=== PATIENT | female | born 1985 | race Caucasian/White ===

== ENCOUNTER 2016-11-23 16:54 | Emergency (ER) | payer OTHER ==
[2016-11-23 17:17] VITALS: BP 118/68
--- NOTE | 2016-11-23 18:04 | ER Document Report ---
HPI - HPI Pain Level: 4 Context: 31 yo female c/o left shoulder pain x 1 day. 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 hurts to lift arm. Associated Symptoms: None Exacerbated by: Movement Relieved by: Denies Similar symptoms previously: No Recently seen / treated by doctor: No - has appointment in 2 days - ROS Systems Reviewed and Negative: Yes All other systems reviewed and negative - REPRODUCTIVE Reproductive: DENIES: : - DERM Skin Color: Normal Past Medical History - General Information source: Patient - Social History Smoking Status: Current Every Day Smoker Frequency of alcohol use: Rare Drug Abuse: None Lives with: Family Family History: Reviewed & Not Pertinent Patient has suicidal ideation: No Patient has homicidal ideation: No Renal/ Medical History: Denies: Hx Peritoneal Dialysis Psychiatric Medical History: Reports: Hx Depression Past Surgical History: Reports: Hx Section - X1, Hx Cholecystectomy, Hx Oral Surgery - wisdom teeth - Immunizations Hx Diphtheria, Pertussis, Tetanus Vaccination: No Vertical Provider Document - CONSTITUTIONAL Agree With Documented VS: Yes Exam Limitations: No Limitations General Appearance: WD/WN - INFECTION CONTROL TRAVEL OUTSIDE OF THE [place] IN LAST 30 DAYS: No - HEENT HEENT: Atraumatic, Normal ENT Exam, PERRLA - NECK Neck: Normal Inspection, Supple - RESPIRATORY Respiratory: Breath Sounds Normal, No Respiratory Distress O2 Sat by Pulse Oximetry: 97 - CARDIOVASCULAR Cardiovascular: Regular Rate, Regular Rhythm - BACK Back: Abnormal Inspection - mild left trapezius tenderness - MUSCULOSKELETAL/EXTREMETIES Musculoskeletal/Extremeties: Tender - left anterior and posterior AC. + painful arc. distal SMC intact, No Edema. negative: Eccymosis - NEURO Level of Consciousness: Awake, Alert, Appropriate - DERM Integumentary: Warm, Dry Course - Vital Signs Vital signs: Temp Pulse Resp BP Pulse Ox 98.7 F 86 20 118/68 97 11/23/16 17:13 11/23/16 17:13 11/23/16 17:13 11/23/16 17:13 11/23/16 17:13 Discharge - Discharge Clinical Impression: Left shoulder pain Qualifiers: Chronicity: acute Qualified Code(s): M25.512 - Pain in left shoulder Condition: Stable Disposition: HOME, SELF-CARE Instructions: Oral Narcotic Medication ([facility]), Bursitis ([facility]), Steroid Medication, Muscle Relaxers ([facility]), Ice Packs ([facility]) Additional Instructions: your history and physical exam are most consistant with an inflammatory process around your rotator cuff rest your arm for next few days no xray was done today because there was no injury or bony tenderness take medications as prescribed follow up with your primary care as scheduled Prescriptions: Hydrocodone/Acetaminophen [[place] 5-325 Tablet] 1 each PO Q4 PRN #20 tablet PRN Reason: Methocarbamol [Robaxin 500 Mg Tablet] 1,000 mg PO Q6 #30 tablet Prednisone [Deltasone 10 mg Tablet] 20 mg PO BID #12 tablet Forms: Return to Work
== END 2016-11-23 18:15 | disposition home or self-care (01) ==
LOC: ER 16:54
DX: M25.512 Pain in left shoulder (principal); F17.200 Nicotine dependence, unspecified, uncomplicated
CPT/HCPCS: 99283

== ENCOUNTER → 2016-11-30 | Outpatient (CLI) | payer OTHER | LOC: RAD 18:22 | PROVIDERS: ATTEND Student in an Organized Health Care Education/Training Program | DX: M75.102 Unspecified rotator cuff tear or rupture of left shoulder, not specified as traumatic (principal) ==

== ENCOUNTER → 2017-03-01 | Day surgery (SDC) | payer OTHER ==
--- NOTE | 2017-03-01 14:32 | RADIOLOGY REPORT (SQ) ---
EXAM DESCRIPTION: ARTHRO SHOULDER INJECTION; FLUORO/NEEDLE PLACEMENT COMPLETED DATE/TIME: 03/01/2017 1:57 pm REASON FOR STUDY: PAIN IN LEFT SHOULDER M25.512 PAIN IN LEFT SHOULDER COMPARISON: MRI left shoulder 11/30/2016 FLUOROSCOPY TIME: 16 seconds 1 digital radiographic images saved to PACS. LIMITATIONS: None. PROCEDURE: Procedure, risks, benefits and alternatives explained to patient who then gave written co nsent. The posterior left shoulder was marked and a time out was called for correct procedure verific ation. Posterior entry site marked using fluoroscopic guidance. Shoulder prepped and draped using s terile technique. Local anesthesia achieved using 5 mL of 1% lidocaine injection. 22 gauge spinal n eedle introduced into the joint space under direct fluoroscopic visualization. Non-ionic contrast ins tilled to confirm intra-articular position. Dilute gadolinium solution then injected. Needle removed and entry site covered with sterile bandage. No immediate complications noted. TECHNIQUE: Digital images acquired during fluoroscopy and stored on PACS. Patient immediately take n to the MR suite for additional imaging. INJECTION LOCATION: Left glenohumeral joint CONTRAST TYPE AND AMOUNT: 0.5 mL of Isovue-300 injected to confirm intra-articular needle placement f ollowed by 10 mL of dilute gadolinium for MR arthrogram. IMPRESSION: SUCCESSFUL NEEDLE PLACEMENT AND INJECTION FOR LEFT SHOULDER MR ARTHROGRAM USING POSTERIO R APPROACH. COMMENT: Quality ID [id number]: Final reports for procedures using fluoroscopy that document radiation exp osure indices, or exposure time and number of fluorographic images (if radiation exposure indices are not available) TECHNICAL DOCUMENTATION: JOB ID: [id number] [email or web address]- All Rights Reserved
--- NOTE | 2017-03-01 17:19 | RADIOLOGY REPORT (SQ) ---
EXAM DESCRIPTION: MRI LT UPPER JOINT WITH COMPLETED DATE/TIME: 03/01/2017 3:21 pm REASON FOR STUDY: PAIN IN LEFT SHOULDER M25.512 PAIN IN LEFT SHOULDER COMPARISON: MRI left shoulder 11/30/2016 TECHNIQUE: Left shoulder images acquired and stored on PACS. Oblique coronal, oblique sagittal, and axial imaging to include fat sensitive sequences as T1, water sensitive sequences as FST2/STIR, and c ontrast sensitive sequences as FST1. LIMITATIONS: None. FINDINGS: JOINT DISTENTION: Adequate distention for interpretation. There is a small amount of flui d in the subacromial/subdeltoid bursa without gadolinium gonadal of bursitis. This is similar compar ed to 11/30/2016. BONE MARROW AND CORTEX: Normal. No significant osteophytes. Small subcortical cyst posterior left hu meral head greater tuberosity. AC JOINT: Type II acromion. Mild AC joint arthropathy. GLENOHUMERAL JOINT: No subluxation or dislocation. No focal chondral defects or reactive bone changes . ROTATOR CUFF: Minimal tendinopathy in the distal supraspinatus tendon. subscapularis, infraspinatus unremarkable. LABRUM AND BICEPS LABRAL COMPLEX: Normal signal in the rotator interval without tear of the superior glenohumeral ligament. Superior labrum, intra-articular long head biceps intact. Distal biceps in no rmal anatomic location in bicipital groove. No paralabral cysts. INFERIOR LABRAL COMPLEX: Bony glenoid and labrum intact. IGHL intact without thickening or tear. No p aralabral cysts. ADJACENT SOFT TISSUES: No masses or nodes. OTHER: No other significant finding. IMPRESSION: Small amount of fluid in the subacromial/subdeltoid bursa. Mild tendinopathy distal supraspinatus. TECHNICAL DOCUMENTATION: JOB ID: [id number] [email or web address]- All Rights Reserved
== END ==
LOC: EDSTATUS 13:00 → RAD 13:12
PROVIDERS: ATTEND Orthopaedic Surgery
PROC: BP09ZZZ Plain Radiography of Left Shoulder (ICD-10-PCS; principal; 2017-03-01)
DX: M25.512 Pain in left shoulder (principal)
CPT/HCPCS: 73222; 77002; 23350; A9576

== ENCOUNTER 2017-06-08 07:44 | Day surgery (SDC) | payer OTHER ==
[2017-06-05 09:16] LABS: ABSOLUTE BASOPHILS # (AUTO) 0.1 10^3/uL (0.0-0.2); ABSOLUTE EOSINOPHILS # (AUTO) 0.3 10^3/uL (0.0-0.6); ABSOLUTE LYMPHOCYTES (AUTO) 2.3 10^3/uL (0.5-4.7); ABSOLUTE MONOCYTES (AUTO) 0.5 10^3/uL (0.1-1.4); BASOPHILS % (AUTO) 0.8 % (0-2); EOSINOPHILS % (AUTO) 4.2 % (0-6); HEMATOCRIT 38.5 % (36.0-47.0); HGB HCT DIFFERENCE 0.5; LYMPHOCYTES % (AUTO) 28.1 % (13-45); MEAN CORPUSCULAR HEMOGLOBIN 30.1 pg (27.0-33.4); MEAN CORPUSCULAR HGB CONC 33.9 g/dL (32.0-36.0); MEAN CORPUSCULAR VOLUME 89 fl (80-97); RED BLOOD COUNT 4.33 10^6/uL (3.72-5.28); RED CELL DISTRIBUTION WIDTH 12.9 % (11.5-14.0); SEGMENTED NEUTROPHILS % (AUTO) 60.9 % (42-78); WHITE BLOOD COUNT 8.1 10^3/uL (4.0-10.5)
[2017-06-05 09:31] LABS: APPEARANCE,URINE SLIGHTLY-CLOUDY; BILIRUBIN,URINE NEGATIVE (NEGATIVE); GLUCOSE, URINE NEGATIVE (NEGATIVE); KETONES,URINE NEGATIVE (NEGATIVE); LEUKOCYTE ESTERASE,URINE NEGATIVE (NEGATIVE); NITRITE,URINE NEGATIVE (NEGATIVE); PROTEIN,URINE NEGATIVE (NEGATIVE); URINE SPECIFIC GRAVITY 1.027; UROBILINOGEN,URINE NEGATIVE mg/dL (<2.0)
[2017-06-05 09:43] LABS: ANION GAP 15 (5-19); BLOOD UREA NITROGEN 13 mg/dL (7-20); CALCIUM 9.1 mg/dL (8.4-10.2); CARBON DIOXIDE 20 mmol/L (22-30); CHLORIDE 109 mmol/L (98-107); CREATININE RESULT 0.67 mg/dL (0.52-1.25); GLUCOSE 85 mg/dL (75-110); POTASSIUM 3.8 mmol/L (3.6-5.0); SODIUM 144.1 mmol/L (137-145)
--- NOTE | 2017-06-05 09:57 | EKG REPORT ---
SEVERITY:- OTHERWISE NORMAL ECG - SINUS ARRHYTHMIA, RATE 55-75 : Confirmed by: Juan Lee 05-Jun-2017 09:57:02
--- NOTE | 2017-06-05 10:37 | RADIOLOGY REPORT (SQ) ---
EXAM DESCRIPTION: CHEST PA/LATERAL COMPLETED DATE/TIME: 06/05/2017 9:24 am REASON FOR STUDY: PRE OP COMPARISON: None. EXAM PARAMETERS: NUMBER OF VIEWS: two views TECHNIQUE: Digital Frontal and Lateral radiographic views of the chest acquired. RADIATION DOSE: NA LIMITATIONS: none FINDINGS: LUNGS AND PLEURA: No opacities, masses or pneumothorax. No pleural effusion. MEDIASTINUM AND HILAR STRUCTURES: No masses or contour abnormalities. HEART AND VASCULAR STRUCTURES: Heart normal size. No evidence for failure. BONES: No acute findings. HARDWARE: None in the chest. OTHER: No other significant finding. IMPRESSION: NO SIGNIFICANT RADIOGRAPHIC FINDING IN THE CHEST. TECHNICAL DOCUMENTATION: JOB ID: [id number] [employer]- All Rights Reserved
[~2017-06-08 07:44] MED LIST: BUPIVACAINE HCL 0.25 % INJ/PF (2.5 MG/1 ML) 30 ML VIAL ONE; CEFAZOLIN 2 GM/D5W RTU 2 GM/50 ML RTUPB IV PRN; EPINEPHRINE INJ/PF 1 MG/1 ML AMPULE ONE
[2017-06-08] MEDS ORDERED: MIDAZOLAM 2 MG/2 ML INJ ONE (10:00)
[2017-06-08] MEDS ORDERED: FENTANYL CITRATE INJ/PF 100 MCG/2 ML AMPUL ONE (10:00)
[2017-06-08] MEDS ORDERED: ACETAMINOPHEN 100 ML IV ONE (10:01)
[2017-06-08] MEDS ORDERED: EPHEDRINE SULFATE INJ 50 MG/1 ML AMPULE ONE (10:01)
[2017-06-08] MEDS ORDERED: IBUPROFEN INJ 800 MG/8 ML VIAL IV ONE (10:01)
[2017-06-08] MEDS ORDERED: PROPOFOL INJ 200 MG/20 ML VIAL IV ONE (10:01)
[2017-06-08] MEDS ORDERED: HYDROMORPHONE HCL INJ/PF 2 MG/ML AMPULE ONE (10:02)
[2017-06-08] MEDS ORDERED: PROMETHAZINE HCL INJ 25 MG/1 ML VIAL IV PRN ×2 (11:50)
[2017-06-08] MEDS ORDERED: DIPHENHYDRAMINE HCL 50 MG/ML VIAL IV PRN (11:50)
[2017-06-08] MEDS ORDERED: ONDANSETRON HCL INJ/PF 4 MG/2 ML SDV IV PRN (11:50)
[2017-06-08] MEDS ORDERED: MEPERIDINE HCL/PF INJ 25 MG/1 ML DISP.SYRIN IV PRN (11:50)
[2017-06-08] MEDS ORDERED: FENTANYL CITRATE INJ/PF 100 MCG/2 ML AMPUL IV PRN ×3 (11:50)
[2017-06-08] MEDS ORDERED: MORPHINE SULFATE 10 MG/ML INJ IV PRN (11:50)
--- NOTE | 2017-06-08 12:16 | Operative Report ---
Operative Report DATE OF SURGERY: 06/08/17 PREOPERATIVE DIAGNOSIS: Left shoulder partial thickness supraspinatus tear and SLAP tear POSTOPERATIVE DIAGNOSIS: Same OPERATION: Left shoulder arthroscopic debridement with decompression and subpectoralis biceps tenodesis SURGEON: MJ DUMONT ANESTHESIA: GA TISSUE REMOVED OR ALTERED: long head of the biceps COMPLICATIONS: none ESTIMATED BLOOD LOSS: less than 20mL INTRAOPERATIVE FINDINGS: as above PROCEDURE: Patient received 1 g of IV Ancef. Patient then was taken to the operating room where she was induced and intubated in supine position. Patient then was secured in the beachchair position where the left shoulder was prepped and draped in a normal surgical fashion. Was done identifying the left shoulder as the correct site. Spinal needle was used to insert into the glenohumeral joint and I proceeded to distend the capsule with sterile saline solution. 11 blade was used to establish my posterior portal and I introduced the cannula into the glenohumeral joint. Once I got return of fluid I confirm proper placement and placed a camera. Under direct visualization I placed a spinal needle marked my anterior portal and used an 11 blade to establish a. I placed a purple cannula and then through the cannula was able to probe and proceed with my diagnostic scope which show pristine glenohumeral joint cartilage and intact labrum anterior, inferior and posterior. Patient had a type II SLAP tear in conjunction with a Deja complex. Turn my attention to the footprint of the rotator cuff which showed to be intact with no partial tearing. At this point through the anterior portal I use arthroscopic scissors to do a tenotomy of the long head of the biceps at the attachment of the glenoid superiorly. I used a 4.0mm shaver and radiofrequency ablator to debride the labrum. I redirected the fluoroscopy camera to the subacromial space and redirected my anterior cannula into the subacromial space as well. Through the anterior portal I was able to do my formal bursectomy and decompression using the shaver and radiofrequency ablator. Rotator cuff was inflamed but intact with no bursal sided partial tear. There is no acromial spurs acromioplasty was performed.I proceeded then to remove fluid from the shoulder joint and removed the instruments. A 1 inch incision was done just medial to the axillary fold dissection was done with Metzenbaum scissors and hemostasis was obtained with the Bovie. Able to then cut the fascia overlying the biceps and then hooked the long head of biceps with a 90 clamp. Was able then to use a fiber loop and suture 2 cm from the muscular tendinous junction and cut the remaining tendon. I used 2 Homans to reflect tissue on the side of the humerus. I used a 4 mm spade tip guidepin then to do my proximal cortex drilling into the intramedullary canal of the humerus. I fed the 2 ends of the fiber wire into the biceps tenodesis button as recommended by the manufacturing company. Pulled out the guidepin and then proceeded to insert the button into the intramedullary canal. I was able to successfully flipped the button and after releasing securing the biceps. I used a free needle the comes in the care and pass one of the FiberWire ends through the biceps one more time to further secure it. Once I since the biceps onto the humeral cortex I then proceeded to go several half hitch knots for added fixation. Instruments were removed and used bulb irrigation to wash the tissue. I proceeded to approximate the tissue with 2-0 Vicryl and close the skin with 3-0 nylon. The 2 of the portal sites were closed with 3-0 nylon as well. I placed Xeroform over the incisions and covered it with 4 x 4 dressing and ABD pads. Secured the dressing with Medipore tape. Patient's arm was placed in the sling and the patient then was placed in supine position extubated and sent to PACU in stable condition.
--- NOTE | 2017-06-08 12:20 | PDOC DISCHARGE SUMMARY ---
Discharge Summary (SDC) - Discharge Final Diagnosis: Left shoulder arthroscopic debridement with decompression and subpectoralis biceps tenodesis Date of Surgery: 06/08/17 Discharge Date: 06/08/17 Condition: Good Treatment or Instructions: Patient is instructed to follow up in 10-14 days. Patient instructed to remove dressing in 4 days then can shower and apply Band- Aids as needed. Patient to wear sling for comfort but okay to remove for shower and pendulum exercises. Pendulum exercises are instructed to be done 3 times a day ideally with breakfast, lunch, dinners and showers. Patient instructed to call if there is any signs of redness or drainage fevers or chills. Prescriptions: Oxycodone HCl/Acetaminophen [Percocet 5-325 mg Tablet] 1 - 2 tab PO ASDIR PRN # 60 tablet PRN Reason: Referrals: LICHA CARDONA DO [Primary Care Provider] - Discharge Diet: As Tolerated Respiratory Treatments at Home: Deep Breathing/Coughing Discharge Activity: No Lifting/Push/Pulling Home Care Assistance: None Needed Report the Following to Your Physician Immediately: Shortness of Breath, Vomiting, Increase in Pain, Fever over 101 Degrees, Unusual Bleeding, Redness, Swelling, Warmth, Increased Soreness, Drainage-Yellow, Drainage-Healy, Drainage- Green, Drainage-Foul Smelling
[2017-06-08] MEDS ORDERED: OXYCODONE-ACETAMINOPHEN 5-325 MG TABLET PO PRN ×2 (12:24)
[2017-06-08] MEDS: FENTANYL CITRATE INJ/PF 100 MCG/2 ML AMPUL ONE ×2 (12:45→12:55)
[2017-06-08] MEDS ORDERED: ONDANSETRON HCL INJ/PF 4 MG/2 ML SDV ONE (14:23)
[2017-06-08] MEDS ORDERED: DEXAMETHASONE SOD PHOSPHATE INJ 4 MG/1 ML VIAL ONE (14:23)
[2017-06-08] MEDS ORDERED: LIDOCAINE 2% INJ-PF (20 MG/ML) 2 ML AMPUL ONE (14:23)
[2017-06-08] MEDS ORDERED: METOCLOPRAMIDE HCL INJ/PF 10 MG/2 ML SDV ONE (14:23)
[2017-06-08] MEDS ORDERED: SUCCINYLCHOLINE CHLORIDE INJ 200 MG/10 ML VIAL ONE (14:23)
[2017-06-08] MEDS ORDERED: GLYCOPYRROLATE INJ 0.4 MG/2 ML VIAL ONE (14:23)
[2017-06-08 15:02] VITALS: BP 112/71
== END 2017-06-08 14:25 | disposition home or self-care (01) ==
LOC: OROUT 07:44
PROVIDERS: ATTEND Orthopaedic Surgery
PROC: 0RBK4ZZ Excision of Left Shoulder Joint, Percutaneous Endoscopic Approach (ICD-10-PCS; 2017-06-08)
PROC: 0LM40ZZ Reattachment of Left Upper Arm Tendon, Open Approach (ICD-10-PCS; principal; 2017-06-08 09:30)
DX: M75.42 Impingement syndrome of left shoulder (principal); M75.112 Incomplete rotator cuff tear or rupture of left shoulder, not specified as traumatic; M75.52 Bursitis of left shoulder; F17.210 Nicotine dependence, cigarettes, uncomplicated; Z79.891 Long term (current) use of opiate analgesic
CPT/HCPCS: 24340; 93005; 36415; 85025; 81025; 80048; 81001; 71020; 93010; 29822; C1713; J2250; J1100; J3490 ×2; J0171; J3010; J2765; J1170; J0330; J2405; J2704; J0690; J0131; J1741; 1630

== ENCOUNTER 2017-11-24 10:11 | Emergency (ER) | payer OTHER ==
--- NOTE | 2017-11-24 10:38 | ER Document Report ---
ED Medical Screen (RME) - General Chief Complaint: Stiff Neck Stated Complaint: BODY ACHES Time Seen by Provider: 11/24/17 10:31 Notes: 32-year-old female patient with sore throat for 3 weeks. 3 days ago developed some pain in the right neck shoulder trapezius region. No history of fevers. She does have body aches and states she feels hot sometimes. Also has headaches. She was seen at an urgent care this morning, had a negative rapid strep done and was sent here for concerns of meningitis. Brief exam shows the tonsillar region on the right has some erythema and swelling, there is a tender anterior cervical gland on the right. Left side is less involved. Trapezius muscle and posterior cervical muscles on the right are quite tender to palpate less so on the left. There is no nuchal rigidity. I have greeted and performed a rapid initial assessment of this patient. A comprehensive ED assessment and evaluation of the patient, analysis of test results and completion of the medical decision making process will be conducted by additional ED providers. TRAVEL OUTSIDE OF THE [place] IN LAST 30 DAYS: No - Related Data Allergies/Adverse Reactions: No Known Allergies Allergy (Verified 11/24/17 10:31) Past Medical History - Social History Chew tobacco use (# tins/day): No Frequency of alcohol use: None Drug Abuse: None - Past Medical History Cardiac Medical History: Denies: Hx Coronary Artery Disease, Hx Heart Attack, Hx Hypertension Pulmonary Medical History: Denies: Hx Asthma, Hx Bronchitis, Hx COPD, Hx Pneumonia Neurological Medical History: Denies: Hx Cerebrovascular Accident, Hx Seizures Renal/ Medical History: Denies: Hx Peritoneal Dialysis Musculoskeltal Medical History: Denies Hx Arthritis Psychiatric Medical History: Reports: Hx Depression Past Surgical History: Reports: Hx Section - X1, Hx Cholecystectomy, Hx Gynecologic Surgery - D & C, Hx Oral Surgery - wisdom teeth - Immunizations Hx Diphtheria, Pertussis, Tetanus Vaccination: Yes History of Influenza Vaccine for 04/2017 - 09/2017 Season: No Physical Exam - Vital signs Vitals: Temp Pulse Resp BP Pulse Ox 98.0 F 76 18 112/62 99 11/24/17 10:17 11/24/17 10:17 11/24/17 10:17 11/24/17 10:17 11/24/17 10:17 Course - Vital Signs Vital signs: Temp Pulse Resp BP Pulse Ox 98.0 F 76 18 112/62 99 11/24/17 10:17 11/24/17 10:17 11/24/17 10:17 11/24/17 10:17 11/24/17 10:17
[2017-11-24 11:01] LABS: ABSOLUTE BASOPHILS # (AUTO) 0.1 10^3/uL (0.0-0.2); ABSOLUTE EOSINOPHILS # (AUTO) 0.2 10^3/uL (0.0-0.6); ABSOLUTE LYMPHOCYTES (AUTO) 2.1 10^3/uL (0.5-4.7); ABSOLUTE MONOCYTES (AUTO) 1.3 10^3/uL (0.1-1.4); ABSOLUTE NEUT (AUTO) 8.7 10^3/uL (1.7-8.2); BASOPHILS % (AUTO) 0.5 % (0-2); EOSINOPHILS % (AUTO) 1.7 % (0-6); HEMATOCRIT 41.9 % (36.0-47.0); HEMOGLOBIN 13.9 g/dL (12.0-15.5); LYMPHOCYTES % (AUTO) 17.3 % (13-45); MEAN CORPUSCULAR HEMOGLOBIN 29.2 pg (27.0-33.4); MEAN CORPUSCULAR HGB CONC 33.2 g/dL (32.0-36.0); MEAN CORPUSCULAR VOLUME 88 fl (80-97); MONOCYTES % (AUTO) 10.7 % (3-13); PLATELET COUNT 256 10^3/uL (150-450); RED BLOOD COUNT 4.76 10^6/uL (3.72-5.28); RED CELL DISTRIBUTION WIDTH 13.3 % (11.5-14.0); SEGMENTED NEUTROPHILS % (AUTO) 69.8 % (42-78); TOTAL CELLS COUNTED % (AUTO) 100 %; WHITE BLOOD COUNT 12.4 10^3/uL (4.0-10.5)
[2017-11-24 11:22] LABS: ALANINE AMINOTRANSFERASE 53 U/L (9-52); ALBUMIN 4.5 g/dL (3.5-5.0); ALKALINE PHOSPHATASE 89 U/L (38-126); ANION GAP 14 (5-19); ASPARTATE AMINO TRANSFERASE 44 U/L (14-36); BILIRUBIN,DIRECT 0.3 mg/dL (0.0-0.4); BILIRUBIN,TOTAL 0.6 mg/dL (0.2-1.3); BLOOD UREA NITROGEN 8 mg/dL (7-20); CALCIUM 9.9 mg/dL (8.4-10.2); CARBON DIOXIDE 26 mmol/L (22-30); CHLORIDE 105 mmol/L (98-107); GLUCOSE 100 mg/dL (75-110); POTASSIUM 4.5 mmol/L (3.6-5.0); SODIUM 145.1 mmol/L (137-145); TOTAL PROTEIN 8.3 g/dL (6.3-8.2)
[2017-11-24] MEDS ORDERED: IBUPROFEN 800 MG TABLET PO ONE (11:45)
[2017-11-24] MEDS ORDERED: CEPHALEXIN 500 MG CAPSULE PO ONE (11:45)
[2017-11-24] MEDS ORDERED: CYCLOBENZAPRINE HCL 10 MG TABLET PO ONE (11:45)
--- NOTE | 2017-11-24 11:46 | ER Document Report ---
ED General - General Chief Complaint: Stiff Neck Stated Complaint: BODY ACHES Time Seen by Provider: 11/24/17 10:31 Notes: 82-year-old female patient to emergency department complaining of right shoulder stiffness. Was seen at outpatient urgent care and was told that she might have meningitis so was sent here. Patient says she has had intermittent headache. No fever, chills, sweats. No rash. Stiffness is mainly located on the right lateral aspect of the neck and right trapezius muscles. Also has a sore throat. TRAVEL OUTSIDE OF THE [place] IN LAST 30 DAYS: No - HPI Onset: Last week Onset/Duration: Gradual, Waxing and waning - Related Data Allergies/Adverse Reactions: No Known Allergies Allergy (Verified 11/24/17 10:31) Past Medical History - General Information source: Patient - Social History Smoking Status: Current Every Day Smoker Cigarette use (# per day): Yes Chew tobacco use (# tins/day): No Frequency of alcohol use: None Drug Abuse: None Lives with: Family Family History: Reviewed & Not Pertinent Patient has suicidal ideation: No Patient has homicidal ideation: No - Past Medical History Cardiac Medical History: Denies: Hx Coronary Artery Disease, Hx Heart Attack, Hx Hypertension Pulmonary Medical History: Denies: Hx Asthma, Hx Bronchitis, Hx COPD, Hx Pneumonia Neurological Medical History: Denies: Hx Cerebrovascular Accident, Hx Seizures Renal/ Medical History: Denies: Hx Peritoneal Dialysis Musculoskeltal Medical History: Denies Hx Arthritis Psychiatric Medical History: Reports: Hx Depression Past Surgical History: Reports: Hx Section - X1, Hx Cholecystectomy, Hx Gynecologic Surgery - D & C X2, Hx Oral Surgery - wisdom teeth, Hx Orthopedic Surgery - left shoulder - Immunizations Hx Diphtheria, Pertussis, Tetanus Vaccination: Yes Review of Systems - Review of Systems Constitutional: denies: Chills, Diaphoresis, Fever, Malaise, Weakness EENT: Throat pain. denies: Eye pain, Eye discharge, Double vision, Ear pain, Difficulty swallowing, Throat swelling, Mouth pain Cardiovascular: denies: Chest pain, Palpitations, Heart racing Respiratory: denies: Cough, Hurts to breathe, Short of breath, Wheezing Gastrointestinal: denies: Abdominal pain, Diarrhea, Nausea, Vomiting Musculoskeletal: See HPI, Muscle pain, Muscle stiffness, Neck pain. denies: Leg swelling, Ankle swelling Skin: denies: Dryness, Lesions, Lumps, Rash Hematologic/Lymphatic: denies: Anemia, Blood clots, Easy bleeding, Easy bruising Neurological/Psychological: Headaches. denies: Confusion, Weakness, Numbness Physical Exam - Vital signs Vitals: Temp Pulse Resp BP Pulse Ox 98.0 F 76 18 112/62 99 11/24/17 10:17 11/24/17 10:17 11/24/17 10:17 11/24/17 10:17 11/24/17 10:17 Interpretation: Normal - General General appearance: Appears well, Alert - HEENT Head: Normocephalic, Atraumatic Eyes: Normal Pupils: PERRL Mouth/Lips: Normal Mucous membranes: Normal Pharynx: Erythema. No: Exudate, Retropharyngeal abscess Neck: Normal, Shotty nodes, Supple, Other - She does have some tenderness to palpation in the right sternocleidomastoid muscle and right trapezius muscle. No midline tenderness. No tenderness with flexion of the neck forward. Main pain is reproducible on the right SCM when neck rotated to the left.. No: Brudzinski, Meningismus, Neck mass - Respiratory Respiratory status: No respiratory distress Chest status: Nontender Breath sounds: Normal Chest palpation: Normal - Cardiovascular Rhythm: Regular Heart sounds: Normal auscultation Murmur: No - Abdominal Inspection: Normal Distension: No distension Bowel sounds: Normal Tenderness: Nontender Organomegaly: No organomegaly - Back Back: Normal, Nontender - Extremities General upper extremity: Normal inspection, Nontender, Normal color, Normal ROM , Normal temperature General lower extremity: Normal inspection, Nontender, Normal color, Normal ROM , Normal temperature, Normal weight bearing. No: Sudhakar's sign - Neurological Neuro grossly intact: Yes Cognition: Normal Orientation: AAOx4 Dario Coma Scale Eye Opening: Spontaneous Dario Coma Scale Verbal: Oriented [place] Coma Scale Motor: Obeys Commands Dario Coma Scale Total: 15 Speech: Normal Motor strength normal: LUE, RUE, LLE, RLE Sensory: Normal - Psychological Associated symptoms: Normal affect, Normal mood - Skin Skin Temperature: Warm Skin Moisture: Dry Skin Color: Normal Course - Re-evaluation Re-evalutation: 11/24/17 12:54 11/24/17 10:45 11/24/17 10:45 MCV 88 fl (80-97) 11/24/17 10:45 MCH 29.2 pg (27.0-33.4) 11/24/17 10:45 MCHC 33.2 g/dL (32.0-36.0) 11/24/17 10:45 RDW 13.3 % (11.5-14.0) 11/24/17 10:45 Seg Neutrophils % 69.8 % (42-78) 11/24/17 10:45 Lymphocytes % 17.3 % (13-45) 11/24/17 10:45 Monocytes % 10.7 % (3-13) 11/24/17 10:45 Eosinophils % 1.7 % (0-6) 11/24/17 10:45 Basophils % 0.5 % (0-2) 11/24/17 10:45 Absolute Neutrophils 8.7 10^3/uL (1.7-8.2) H 11/24/17 10:45 Absolute Lymphocytes 2.1 10^3/uL (0.5-4.7) 11/24/17 10:45 Absolute Monocytes 1.3 10^3/uL (0.1-1.4) 11/24/17 10:45 Absolute Eosinophils 0.2 10^3/uL (0.0-0.6) 11/24/17 10:45 Absolute Basophils 0.1 10^3/uL (0.0-0.2) 11/24/17 10:45 Chloride 105 mmol/L (98-107) 11/24/17 10:45 Carbon Dioxide 26 mmol/L (22-30) 11/24/17 10:45 Anion Gap 14 (5-19) 11/24/17 10:45 Est GFR ( Amer) > 60 (>60) 11/24/17 10:45 Est GFR (Non-Af Amer) > 60 (>60) 11/24/17 10:45 Glucose 100 mg/dL (75-110) 11/24/17 10:45 Calcium 9.9 mg/dL (8.4-10.2) 11/24/17 10:45 Total Bilirubin 0.6 mg/dL (0.2-1.3) 11/24/17 10:45 AST 44 U/L (14-36) H 11/24/17 10:45 ALT 53 U/L (9-52) H 11/24/17 10:45 Alkaline Phosphatase 89 U/L (38-126) 11/24/17 10:45 Total Protein 8.3 g/dL (6.3-8.2) H 11/24/17 10:45 Albumin 4.5 g/dL (3.5-5.0) 11/24/17 10:45 Serum HCG, Qual NEGATIVE (NEGATIVE) 11/24/17 10:45 This is well-appearing female in no acute distress. Likely has a viral pharyngitis. Did empirically treat with antibiotics as she does have a unilateral swollen tonsil with shotty lymphadenopathy on the right side of the neck. Culture is added for the throat. This is not meningitis in my opinion. Does not manifest any nuchal rigidity. Negative Kernig's, negative Brudzinski. Patient given strict warning signs with regards to her symptoms. Advised to return immediately. Of note patient has slightly elevated LFT of AST and ALT which is unchanged from prior labs. - Vital Signs Vital signs: Temp Pulse Resp BP Pulse Ox 98.0 F 76 18 112/62 99 11/24/17 10:17 11/24/17 10:17 11/24/17 10:17 11/24/17 10:17 11/24/17 10:17 - Laboratory Result Diagrams: 11/24/17 10:45 11/24/17 10:45 Laboratory results interpreted by me: 11/24/17 11/24/17 10:45 10:45 WBC 12.4 H Absolute Neutrophils 8.7 H Sodium 145.1 H AST 44 H ALT 53 H Total Protein 8.3 H Discharge - Discharge Clinical Impression: Torticollis, acute Pharyngitis Qualifiers: Pharyngitis/tonsillitis etiology: unspecified etiology Qualified Code(s): J02.9 - Acute pharyngitis, unspecified Disposition: HOME, SELF-CARE Instructions: Sore Throat ([facility]) Additional Instructions: It does not appear that you have meningitis. We are treating you with a muscle relaxant and anti-inflammatories as well as antibiotics. In the event that symptoms are getting worse, worsening headache, fever, worsening stiffness of the neck, mental status changes, confusion, abnormal rash or any other concerns return immediately. Prescriptions: Cephalexin Monohydrate [Keflex 500 mg Capsule] 500 mg PO QID 7 Days #28 capsule Cyclobenzaprine HCl [Flexeril 5 mg Tablet] 5 mg PO TID #15 tablet Ibuprofen [Motrin 800 mg Tablet] 800 mg PO Q8H PRN 10 Days #30 tab PRN Reason: Referrals: LICHA CARDONA DO [Primary Care Provider] - Follow up as needed
[2017-11-24 13:47] VITALS: BP 108/60
== END 2017-11-24 14:00 | disposition home or self-care (01) ==
LOC: ER 10:11
DX: M43.6 Torticollis (principal); J02.9 Acute pharyngitis, unspecified; R51 Headache; F17.210 Nicotine dependence, cigarettes, uncomplicated; R59.0 Localized enlarged lymph nodes; R74.0 Nonspecific elevation of levels of transaminase and lactic acid dehydrogenase [LDH]
CPT/HCPCS: 36415; 80053; 84703; 85025; 86308; 87070; 87880; 99283

== ENCOUNTER 2018-04-19 10:31 | Day surgery (SDC) | payer OTHER ==
[2018-04-17 10:49] LABS: HEMOGLOBIN 13.5 g/dL (12.0-15.5); MEAN CORPUSCULAR HEMOGLOBIN 30.3 pg (27.0-33.4); MEAN CORPUSCULAR HGB CONC 34.6 g/dL (32.0-36.0); MEAN CORPUSCULAR VOLUME 88 fl (80-97); PLATELET COUNT 252 10^3/uL (150-450); RED BLOOD COUNT 4.45 10^6/uL (3.72-5.28); RED CELL DISTRIBUTION WIDTH 13.1 % (11.5-14.0); WHITE BLOOD COUNT 7.3 10^3/uL (4.0-10.5)
[2018-04-17 11:09] LABS: APPEARANCE,URINE CLOUDY; BILIRUBIN,URINE NEGATIVE (NEGATIVE); COLOR,URINE YELLOW; GLUCOSE, URINE NEGATIVE (NEGATIVE); KETONES,URINE NEGATIVE (NEGATIVE); LEUKOCYTE ESTERASE,URINE NEGATIVE (NEGATIVE); NITRITE,URINE NEGATIVE (NEGATIVE); PROTEIN,URINE NEGATIVE (NEGATIVE); URINE SPECIFIC GRAVITY 1.014; UROBILINOGEN,URINE NEGATIVE mg/dL (<2.0)
[2018-04-17 11:18] LABS: ANION GAP 10 (5-19); BLOOD UREA NITROGEN 10 mg/dL (7-20); CALCIUM 9.4 mg/dL (8.4-10.2); CARBON DIOXIDE 25 mmol/L (22-30); CHLORIDE 106 mmol/L (98-107); GLUCOSE 86 mg/dL (75-110); POTASSIUM 4.4 mmol/L (3.6-5.0); SODIUM 141.2 mmol/L (137-145)
--- NOTE | 2018-04-17 12:44 | RADIOLOGY REPORT (SQ) ---
EXAM DESCRIPTION: CHEST PA/LATERAL COMPLETED DATE/TIME: 04/17/2018 11:44 am REASON FOR STUDY: PRE-OP COMPARISON: 06/05/2017 EXAM PARAMETERS: NUMBER OF VIEWS: two views TECHNIQUE: Digital Frontal and Lateral radiographic views of the chest acquired. RADIATION DOSE: NA LIMITATIONS: none FINDINGS: LUNGS AND PLEURA: No opacities, masses or pneumothorax. No pleural effusion. MEDIASTINUM AND HILAR STRUCTURES: No masses or contour abnormalities. HEART AND VASCULAR STRUCTURES: Heart normal size. No evidence for failure. BONES: No acute findings. HARDWARE: None in the chest. OTHER: No other significant finding. IMPRESSION: 1. No significant interval changes since the prior examination dated 06/05/2017. No ac nathan findings. TECHNICAL DOCUMENTATION: JOB ID: [id number] [employer]- All Rights Reserved Reading location - IP/workstation name: [email or web address]
--- NOTE | 2018-04-17 17:02 | EKG REPORT ---
SEVERITY:- NORMAL ECG - SINUS RHYTHM : Confirmed by: Brooke Aiken MD 17-Apr-2018 17:01:33
[~2018-04-19 10:31] MED LIST changes: -BUPIVACAINE HCL 0.25 % INJ/PF (2.5 MG/1 ML) 30 ML VIAL ONE; +CEFAZOLIN 2 GM/D5W RTU 2 GM/50 ML RTUPB IV ONE; -EPINEPHRINE INJ/PF 1 MG/1 ML AMPULE ONE; +LACTATED RINGERS 1000 ML IV PRN; +SUCCINYLCHOLINE CHLORIDE INJ 200 MG/10 ML VIAL ONE
[2018-04-19] MEDS ORDERED: BUPIVACAINE HCL 0.5 % INJ/PF 30 ML SDV ONE (14:14)
[2018-04-19] MEDS ORDERED: EPINEPHRINE INJ/PF 1 MG/1 ML AMPULE ONE (14:14)
[2018-04-19] MEDS ORDERED: MIDAZOLAM 2 MG/2 ML INJ ONE (15:17)
[2018-04-19] MEDS ORDERED: HYDROMORPHONE HCL INJ/PF 2 MG/ML AMPULE ONE (15:18)
[2018-04-19] MEDS ORDERED: PROPOFOL INJ 200 MG/20 ML VIAL IV ONE (15:18)
[2018-04-19] MEDS ORDERED: FENTANYL CITRATE INJ/PF 100 MCG/2 ML AMPUL IV PRN ×3 (16:11)
[2018-04-19] MEDS ORDERED: DIPHENHYDRAMINE HCL 50 MG/ML VIAL IV PRN (16:11)
[2018-04-19] MEDS ORDERED: MORPHINE SULFATE 10 MG/ML INJ IV PRN (16:11)
[2018-04-19] MEDS ORDERED: MEPERIDINE HCL/PF INJ 25 MG/1 ML DISP.SYRIN IV PRN (16:11)
[2018-04-19] MEDS ORDERED: OXYCODONE-ACETAMINOPHEN 5-325 MG TABLET PO PRN ×4 (16:11→17:14)
[2018-04-19] MEDS ORDERED: PROMETHAZINE HCL INJ 25 MG/1 ML VIAL IV PRN ×2 (16:11)
--- NOTE | 2018-04-19 17:07 | Discharge Summary ---
Discharge Summary (SDC) - Discharge Final Diagnosis: Left shoulder arthroscopy with debridement and acromioplasty Date of Surgery: 04/19/18 Discharge Date: 04/19/18 Condition: Good Treatment or Instructions: Patient is instructed to follow up in 10-14 days. Patient instructed to remove dressing in 4 days then can shower and apply Band- Aids as needed. Patient to wear sling for comfort but okay to remove for shower and pendulum exercises. Pendulum exercises are instructed to be done 3 times a day ideally with breakfast, lunch, dinners and showers. Patient instructed to call if there is any signs of redness or drainage fevers or chills. Prescriptions: Oxycodone HCl/Acetaminophen [Percocet 5-325 mg Tablet] 1 - 2 tab PO ASDIR PRN # 40 tablet PRN Reason: Referrals: LICHA CARDONA DO [Primary Care Provider] - Discharge Diet: As Tolerated Respiratory Treatments at Home: Deep Breathing/Coughing Discharge Activity: No Driving, No Lifting/Push/Pulling, Slowly Increase Activity Home Care Assistance: None Needed Report the Following to Your Physician Immediately: Shortness of Breath, Vomiting, Increase in Pain, Fever over 101 Degrees, Unusual Bleeding, Redness, Swelling, Warmth, Increased Soreness, Drainage-Yellow, Drainage-Healy, Drainage- Green, Drainage-Foul Smelling
--- NOTE | 2018-04-19 17:14 | Operative Report ---
Operative Report DATE OF SURGERY: 04/19/18 PREOPERATIVE DIAGNOSIS: Left shoulder impingement syndrome POSTOPERATIVE DIAGNOSIS: Same OPERATION: Left shoulder arthroscopic debridement. Decompression and acromioplasty SURGEON: MJ DUMONT ANESTHESIA: GA TISSUE REMOVED OR ALTERED: none COMPLICATIONS: none ESTIMATED BLOOD LOSS: 20mL INTRAOPERATIVE FINDINGS: as above PROCEDURE: Patient received preoperative antibiotics in the holding area. Patient then was transferred to the OR where she was induced under general anesthetic and placed in a beachchair position. Once patient was secured the left shoulder was prepped and draped in a normal sterile surgical fashion. Timeout was done identifying the left shoulder is a correct site. I proceeded to use the previous portal sites and the posterior portal with 11 blade. Used 11 blade for the anterior portal. I introduced my scope and distended the capsule with sterile saline solution. Camera was introduced and under direct visualization I was able to place my probe and show there was some fraying of the labrum anteriorly and superiorly and some scar tissue over the bicipital groove. Through the anterior portal was able to resect this using a 4.0 mm shaver and radiofrequency ablator. There was no loose bodies in the glenohumeral articular cartilage was intact. Once I was satisfied with his portion of the case I then redirected the scope to the subacromial space and then then established a lateral portal. Through the lateral portal I used the shaver and radiofrequency ablator 1 more time to do resection of my bursal tissue. I was able to visualize the rotator cuff which showed no partial bursal sided tear. I then I used the radiofrequency ablator to delineate the acromion and all way up to the AC joint. Through this lateral portal I used a 5.5 barrel bur and the resection of the anterolateral portion of the acromion. Pictures were taken after resection. Fluid from the subacromial space was removed and the instruments were all removed at this portion of the case and then the 3 portal sites that were established were closed with 3-0 Prolene. I applied quarter percent Marcaine in the portal sites and then covered it with Xeroform 4 x 4 dressing and ABD pads. Paper tape was used then to secure the dressing. Drapes were removed and the patient was placed in a sling. Patient then was placed in a beachchair position where she was extubated and sent to PACU in a stable condition
[2018-04-19] MEDS: FENTANYL CITRATE INJ/PF 100 MCG/2 ML AMPUL ONE ×3 (17:35→17:45)
[2018-04-19] MEDS ORDERED: OXYCODONE-ACETAMINOPHEN 5-325 MG TABLET ONE (18:20)
[2018-04-19 19:22] VITALS: BP 124/67
== END 2018-04-19 19:20 | disposition home or self-care (01) ==
LOC: OROUT 10:31
PROVIDERS: ATTEND Orthopaedic Surgery
DX: M75.42 Impingement syndrome of left shoulder (principal); M25.512 Pain in left shoulder; F17.210 Nicotine dependence, cigarettes, uncomplicated; Z79.899 Other long term (current) drug therapy; Z01.818 Encounter for other preprocedural examination
CPT/HCPCS: 93005; 36415; 85027; 81025; 80048; 81001; 71046; 93010; 29822; J2250; J3490; J0171; J3010; J1170; J0330; J2704; J0690; 1630

== ENCOUNTER 2018-06-06 15:59 | Emergency (ER) | payer OTHER ==
[2018-06-06 16:05] VITALS: BP 118/62
--- NOTE | 2018-06-06 16:29 | ER Document Report ---
HPI - HPI Pain Level: 4 Notes: Patient is an otherwise healthy 33-year-old female who presents with chief complaint of dog bite to her right first digit. Patient reports that the dog's immunizations are up-to-date, she was breaking up a dog fight in her home. She reports her tetanus is up-to-date. - REPRODUCTIVE Reproductive: DENIES: : Past Medical History - General Information source: Patient - Social History Smoking Status: Current Every Day Smoker Frequency of alcohol use: None Drug Abuse: Marijuana Family History: Reviewed & Not Pertinent Patient has suicidal ideation: No Patient has homicidal ideation: No - Past Medical History Cardiac Medical History: Denies: Hx Coronary Artery Disease, Hx Heart Attack, Hx Hypertension Pulmonary Medical History: Denies: Hx Asthma, Hx Bronchitis, Hx COPD, Hx Pneumonia Neurological Medical History: Denies: Hx Cerebrovascular Accident, Hx Seizures Renal/ Medical History: Denies: Hx Peritoneal Dialysis Musculoskeletal Medical History: Denies Hx Arthritis Psychiatric Medical History: Reports: Hx Depression Past Surgical History: Reports: Hx Section - X1, Hx Cholecystectomy, Hx Gynecologic Surgery - D & C X2, Hx Oral Surgery - wisdom teeth, Hx Orthopedic Surgery - left shoulder - Immunizations Hx Diphtheria, Pertussis, Tetanus Vaccination: Yes Vertical Provider Document - CONSTITUTIONAL Notes: PHYSICAL EXAMINATION: GENERAL: Well-appearing, well-nourished and in no acute distress. HEAD: Atraumatic, normocephalic. EYES: Pupils equal round extraocular movements intact, conjunctiva are normal. ENT: Nares patent NECK: Normal range of motion LUNGS: No respiratory distress Musculoskeletal: Normal range of motion NEUROLOGICAL: Normal speech, normal gait. PSYCH: Normal mood, normal affect. SKIN: Warm, Dry, normal turgor, no rashes or lesions noted. Small avulsion measuring approximately 1 cm noted to right first digit, no active bleeding noted, cap refill less than 3 seconds. Normal motor and sensation. - INFECTION CONTROL TRAVEL OUTSIDE OF THE [place] IN LAST 30 DAYS: No Course - Re-evaluation Re-evalutation: 06/06/18 16:38 Wound cleaned with surgical scrub. Patient instructed to clean twice daily with surgical scrub. Patient placed on Augmentin. Discussed the importance of taking the antibiotics. Patient verbalizes understanding. - Vital Signs Vital signs: Temp Pulse Resp BP Pulse Ox 98.4 F 98 16 118/62 96 06/06/18 16:04 06/06/18 16:04 06/06/18 16:04 06/06/18 16:04 06/06/18 16:04 Discharge - Discharge Clinical Impression: Dog bite of extremity Condition: Stable Disposition: HOME, SELF-CARE Additional Instructions: Animal Bites Animal bites are often heavily contaminated with bacteria. In spite of thorough cleansing and proper treatment, these wounds frequently become infected. Bite wounds of the hands are especially prone to complications. Bites are dressed, if possible. Large wounds may require suturing after internal cleansing. Because of infection risk, some large wounds must remain unstitched. Your doctor is trained to advise you on the best treatment for your bite. Call the doctor at once if the wound becomes red, swollen, warm, increasingly painful, or if it begins to drain. Danger signs also include red streaks up the involved extremity, swollen glands in the groin or under the arm , or fever and chills. The risk of rabies from domestic animals is very low. Bats, sick animals, and wild animals may expose you to rabies. The physician, or the health department, will inform you if you will need to receive the rabies vaccine. Augmentin Augmentin is a mixture of amoxicillin and clavulanate. Amoxicillin is a member of the penicillin family. It covers the germs likely to cause ear, bronchial, and urinary infections better than plain penicillin. The addition of clavulanate allows it to cover staph infections of the skin, as well as resistant cases of ear and sinus infections. Your physician has chosen Augmentin for you because of the special nature of your situation. Augmentin is best taken with meals. Nausea after taking the medication is rare, but can occur. Diarrhea can occur, particularly in small children. Vaginal yeast infections, and oral thrush in infants are also common. Contact your physician if these problems occur. Allergy to penicillins is common. If you have had an allergic reaction to any drug of the penicillin family, you should never take any other penicillin. Notify your doctor at once if you develop hives, shortness of breath, swelling, or faintness. Return for a wound check in 48 hours. Complete all the antibiotics as prescribed. This is very important as animal bites have a high potential for infection. Return to the emergency department if you experience increased redness, swelling, warmth, increased pain or drainage from the area. Prescriptions: Amox Tr/Potassium Clavulanate [Augmentin 875-125 mg Tablet] 1 tab PO BID #20 tablet Referrals: LICHA CARDONA DO [Primary Care Provider] - Follow up as needed
== END 2018-06-06 17:00 | disposition home or self-care (01) ==
LOC: ER 15:59
DX: S61.051A Open bite of right thumb without damage to nail, initial encounter (principal); Y93.K9 Activity, other involving animal care; F17.200 Nicotine dependence, unspecified, uncomplicated; F12.10 Cannabis abuse, uncomplicated
CPT/HCPCS: 99283

== ENCOUNTER 2018-07-30 07:44 | Emergency (ER) | payer OTHER ==
[2018-07-30] MEDS ORDERED: ACETAMINOPHEN 325 MG TABLET PO ONE (08:45)
[2018-07-30] MEDS ORDERED: PSEUDOEPHEDRINE HCL 30 MG TABLET PO ONE (08:45)
[2018-07-30] MEDS ORDERED: IPRATROPIUM/ALBUTEROL 0.5-2.5 MG/3 ML AMPUL NEB ONE (08:46)
--- NOTE | 2018-07-30 08:47 | ER Document Report ---
HPI - HPI Patient complains to provider of: Flu symptoms Time Seen by Provider: 07/30/18 08:25 Onset: Other - 2 days Onset/Duration: Persistent Quality of pain: Achy Pain Level: 4 Context: Patient reports recent international travel from [facility], to [place] to [place] and then here. Patient reports a 2-day history of cough, fever body aches with diarrhea. Patient does state that her child recently had influenza but that was several weeks ago. Associated Symptoms: Body/muscle aches, Nonproductive cough, Diarrhea, Fever, Rhinnorhea. denies: Earache, Vomiting Exacerbated by: Denies Relieved by: Denies Similar symptoms previously: No Recently seen / treated by doctor: No - ROS ROS below otherwise negative: Yes Systems Reviewed and Negative: Yes All other systems reviewed and negative - CONSTITUTIONAL Constitutional: REPORTS: Fever, Chills - EENT EENT: REPORTS: Sore Throat, Nasal Drainage-Clear - NEURO Neurology: REPORTS: Headache - RESPIRATORY Respiratory: REPORTS: Coughing - GASTROINTESTINAL Gastrointestinal: REPORTS: Diarrhea. DENIES: Abdominal Pain - REPRODUCTIVE LMP: 07/28/18 Reproductive: DENIES: : - DERM Skin Color: Normal Skin Problems: None Past Medical History - General Information source: Patient - Social History Smoking Status: Current Every Day Smoker Chew tobacco use (# tins/day): No Smoking Education Provided: Yes Frequency of alcohol use: None Drug Abuse: None Occupation: Self-employed Lives with: Family Family History: Reviewed & Not Pertinent Patient has suicidal ideation: No Patient has homicidal ideation: No - Medical History Medical History: Negative Renal/ Medical History: Denies: Hx Peritoneal Dialysis Musculoskeletal Medical History: Denies Hx Arthritis Psychiatric Medical History: Reports: Hx Depression Past Surgical History: Reports: Hx Section - X1, Hx Cholecystectomy, Hx Gynecologic Surgery - D & C X2, Hx Oral Surgery - wisdom teeth, Hx Orthopedic Surgery - left shoulder x2 - Immunizations Hx Diphtheria, Pertussis, Tetanus Vaccination: Yes Vertical Provider Document - CONSTITUTIONAL Agree With Documented VS: Yes Exam Limitations: No Limitations General Appearance: WD/WN, No Apparent Distress - INFECTION CONTROL TRAVEL OUTSIDE OF THE [place] IN LAST 30 DAYS: Yes - Karen, [facility] HEENT: Atraumatic, Normocephalic. negative: Pharyngeal Exudate, Pharyngeal Tend erness, Pharyngeal Erythema, Tympanic Membrane Red, Tympanic Membrane Bulging Notes: clear rhinorrhea - NECK Neck: Normal Inspection, Supple. negative: Lymphadenopathy-Left, Lymphadenopathy-Right Notes: No meningismus - RESPIRATORY Respiratory: No Respiratory Distress, Chest Non-Tender, Wheezing - CARDIOVASCULAR Cardiovascular: Regular Rate, Regular Rhythm, No Murmur - GI/ABDOMEN Gastrointestinal: Abdomen Soft - BACK Back: Normal Inspection - MUSCULOSKELETAL/EXTREMETIES Musculoskeletal/Extremeties: MAEW - NEURO Level of Consciousness: Awake, Alert, Appropriate Motor/Sensory: No Motor Deficit - DERM Integumentary: Warm, Dry, No Rash Course - Re-evaluation Re-evalutation: 07/30/18 10:55 Patient is requesting Tamiflu prescription be given. - Vital Signs Vital signs: Temp Pulse Resp BP Pulse Ox 100.5 F H 92 20 120/67 99 07/30/18 07:57 07/30/18 07:57 07/30/18 07:57 07/30/18 07:57 07/30/18 07:57 - Laboratory Laboratory results interpreted by me: 07/30/18 10:48 Labs- Entire Visit 07/30/18 08:05 Influenza A (Rapid) POSITIVE Influenza B (Rapid) NEGATIVE - Diagnostic Test Radiology reviewed: Reports reviewed Discharge - Discharge Clinical Impression: Influenza A Condition: Stable Disposition: HOME, SELF-CARE Instructions: Acetaminophen, Influenza ([facility]), Inhaled Bronchodilators ([facility]) Additional Instructions: Return immediately for any new or worsening symptoms Followup with your primary care provider, call tomorrow to make a followup appointment Prescriptions: Benzonatate [Tessalon Perle 100 mg Capsule] 100 mg PO Q8HP PRN #20 cap PRN Reason: Albuterol Sulfate [Proair Hfa Inhalation Aerosol 8.5 gm Mdi] 2 puff IH Q4 PRN #1 mdi PRN Reason: Inhaler,Assist Device,Accesory [Optichamber] 1 each MC Q4 PRN #1 each PRN Reason: Naproxen [Naprosyn 250 Nmg Tablet] 1 tab PO BID #14 tablet Oseltamivir Phosphate [Tamiflu 75 mg Capsule] 75 mg PO BID #10 capsule Forms: Smoking Cessation Education Referrals: LICHA CARDONA DO [Primary Care Provider] - Follow up as needed
--- NOTE | 2018-07-30 09:30 | RADIOLOGY REPORT (SQ) ---
EXAM DESCRIPTION: CHEST 2 VIEWS COMPLETED DATE/TIME: 07/30/2018 9:14 am REASON FOR STUDY: cough, fever COMPARISON: Chest films 04/17/2018, 06/05/2017 EXAM PARAMETERS: NUMBER OF VIEWS: two views TECHNIQUE: Digital Frontal and Lateral radiographic views of the chest acquired. RADIATION DOSE: NA LIMITATIONS: none FINDINGS: LUNGS AND PLEURA: No opacities, masses or pneumothorax. No pleural effusion. MEDIASTINUM AND HILAR STRUCTURES: No masses or contour abnormalities. HEART AND VASCULAR STRUCTURES: Heart normal size. No evidence for failure. BONES: No acute findings. HARDWARE: None in the chest. OTHER: No other significant finding. IMPRESSION: NO ACUTE RADIOGRAPHIC FINDING IN THE CHEST. TECHNICAL DOCUMENTATION: JOB ID: [id number] [employer]- All Rights Reserved Reading location - IP/workstation name: [email or web address]
[2018-07-30 10:40] LABS: A TYPE INFLUENZA AG POSITIVE (NEGATIVE); B INFLUENZA AG NEGATIVE (NEGATIVE)
[2018-07-30 11:18] VITALS: BP 111/62
== END 2018-07-30 11:18 | disposition home or self-care (01) ==
LOC: ER 07:44
DX: J11.1 Influenza due to unidentified influenza virus with other respiratory manifestations (principal); M79.10 Myalgia, unspecified site; R19.7 Diarrhea, unspecified; R50.9 Fever, unspecified; R51 Headache; F17.200 Nicotine dependence, unspecified, uncomplicated; Z90.49 Acquired absence of other specified parts of digestive tract
CPT/HCPCS: 94640; 99283; 87804; 71046; J7620

== ENCOUNTER 2019-04-01 05:34 | Day surgery (SDC) | payer OTHER ==
[2019-03-26 09:57] LABS: APPEARANCE,URINE SLIGHTLY-CLOUDY; BILIRUBIN,URINE NEGATIVE (NEGATIVE); COLOR,URINE YELLOW; GLUCOSE, URINE NEGATIVE (NEGATIVE); KETONES,URINE NEGATIVE (NEGATIVE); LEUKOCYTE ESTERASE,URINE NEGATIVE (NEGATIVE); NITRITE,URINE NEGATIVE (NEGATIVE); PROTEIN,URINE NEGATIVE (NEGATIVE); UROBILINOGEN,URINE NEGATIVE mg/dL (<2.0)
[2019-03-26 09:59] LABS: HEMATOCRIT 38.7 % (36.0-47.0); HEMOGLOBIN 12.9 g/dL (12.0-15.5); MEAN CORPUSCULAR HEMOGLOBIN 29.5 pg (27.0-33.4); MEAN CORPUSCULAR HGB CONC 33.4 g/dL (32.0-36.0); MEAN CORPUSCULAR VOLUME 88 fl (80-97); PLATELET COUNT 239 10^3/uL (150-450); RED BLOOD COUNT 4.39 10^6/uL (3.72-5.28); RED CELL DISTRIBUTION WIDTH 13.2 % (11.5-14.0)
[2019-03-26 10:27] LABS: ALBUMIN 3.9 g/dL (3.5-5.0); ALKALINE PHOSPHATASE 83 U/L (38-126); ANION GAP 7 (5-19); ASPARTATE AMINO TRANSFERASE 40 U/L (14-36); BILIRUBIN,DIRECT 0.3 mg/dL (0.0-0.4); BILIRUBIN,TOTAL 0.3 mg/dL (0.2-1.3); BLOOD UREA NITROGEN 11 mg/dL (7-20); CALCIUM 9.2 mg/dL (8.4-10.2); CARBON DIOXIDE 29 mmol/L (22-30); CHLORIDE 104 mmol/L (98-107); GLUCOSE 89 mg/dL (75-110); TOTAL PROTEIN 6.9 g/dL (6.3-8.2)
[~2019-04-01 05:34] MED LIST changes: -CEFAZOLIN 2 GM/D5W RTU 2 GM/50 ML RTUPB IV ONE; -CEFAZOLIN 2 GM/D5W RTU 2 GM/50 ML RTUPB IV PRN; +CEFAZOLIN SODIUM 2 GM in DEXTROSE 5%-WATER 100 ML IV PRN; -LACTATED RINGERS 1000 ML IV PRN; -SUCCINYLCHOLINE CHLORIDE INJ 200 MG/10 ML VIAL ONE
[2019-04-01] MEDS ORDERED: METHYLENE BLUE 50 MG/10 ML AMPULE ONE (06:44)
[2019-04-01] MEDS ORDERED: HYDROMORPHONE HCL INJ/PF 2 MG/ML AMPULE ONE ×2 (06:47→10:56)
[2019-04-01] MEDS ORDERED: FENTANYL CITRATE INJ/PF 250 MCG/5 ML AMPULE ONE (06:47)
[2019-04-01] MEDS ORDERED: PROPOFOL INJ 200 MG/20 ML VIAL IV ONE (06:47)
[2019-04-01] MEDS ORDERED: MIDAZOLAM 2 MG/2 ML INJ ONE (07:18)
[2019-04-01] MEDS ORDERED: HYDROMORPHONE HCL INJ/PF 2 MG/ML AMPULE IV PRN ×2 (09:14→10:26)
[2019-04-01] MEDS ORDERED: MEPERIDINE HCL/PF INJ 25 MG/1 ML DISP.SYRIN IV PRN (09:14)
[2019-04-01] MEDS ORDERED: PROMETHAZINE HCL INJ 25 MG/1 ML VIAL IV PRN ×3 (09:14→10:26)
[2019-04-01] MEDS ORDERED: FENTANYL CITRATE INJ/PF 100 MCG/2 ML AMPUL IV PRN ×3 (09:14)
[2019-04-01] MEDS ORDERED: DIPHENHYDRAMINE HCL 50 MG/ML VIAL IV PRN (09:14)
[2019-04-01] MEDS ORDERED: ACETAMINOPHEN 1,000 MG/100 ML RTUPB IV PRN (10:26)
[2019-04-01] MEDS ORDERED: RINGERS SOLUTION,LACTATED 1,000 ML IV PRN (10:26)
[2019-04-01] MEDS ORDERED: ACETAMINOPHEN 325 MG TABLET PO PRN (10:26)
[2019-04-01] MEDS ORDERED: ACETAMINOPHEN 1,000 MG/100 ML RTUPB IV ONE (10:37)
--- NOTE | 2019-04-01 10:38 | Operative Report ---
Operative Report DATE OF SURGERY: 04/01/19 PREOPERATIVE DIAGNOSIS: Chronic pelvic pain and patient desires hysterectomy POSTOPERATIVE DIAGNOSIS: Same OPERATION: Robotic hysterectomy bilateral salpingo-oophorectomy SURGEON: YESIKA LANIER ANESTHESIA: GA TISSUE REMOVED OR ALTERED: Uterus tubes ovaries COMPLICATIONS: None ESTIMATED BLOOD LOSS: 50 cc INTRAOPERATIVE FINDINGS: Endometriosis in the posterior cul-de-sac was noted. PROCEDURE: Patient was taken the OR and placed in supine position. General anesthesia was induced. She is placed in dorsolithotomy position using Francisco stirrups. Her abdomen perineum and vagina were prepared and draped in sterile fashion. A Costello catheter was placed in the bladder. A V care uterine manipulator was placed on the cervix after sounding it to 8 cm. The large cup was used on the V care. Next an incision was made above the umbilicus. The fascia was grasped with Allis clamps and elevated and incised and incised. This entered the abdominal cavity. A blunt port was placed. The balloon was inflated. Laparoscopy confirmed appropriate placement. The abdomen was insufflated with CO2 gas. The lateral ports were placed under laparoscopic visualization. In the right lower quadrant port was placed under laparoscopic visualization. View of the pelvis was good. Next the ureters were identified well down in the pelvis away from the operative field. The the infundibulopelvic pedicles were then cauterized bilaterally with bipolar and cut with monopolar daniel. The broad ligament was cauterized with bipolar cautery and cut with monopolar daniel moving directly next to the uterus. The round ligaments were cauterized with bipolar and cut with monopolar daniel. Then alongside the uterus the broad ligament was cauterized bipolar and cut with monopolar daniel. The bladder flap was developed with sharp dissection. The uterine arteries were then cauterized next to the uterus with bipolar cautery and cut with monopolar daniel. Likewise the cardinal ligaments were cauterized with bipolar and cut with monopolar cautery. During this time the bladder was dissected off the anterior aspect of the cervix with sharp and blunt dissection. The the circumferential incision was then made around the cervix on top of the V care cup using monopolar cautery. The uterus was removed through the vagina along with the tubes and ovaries. The vaginal cuff was then closed with a 2-O V lock suture. I started on the right side of the cuff closed the right ankle incorporating anterior vaginal mucosa lateral vaginal sidewall and posterior vaginal mucosa. The suture was looped and pulled tight. Next the cuff was closed in a running fashion incorporating anterior vaginal coasted to posterior vaginal mucosa. Upon reaching the left ankle likewise the left angle was closed incorporating anterior vaginal mucosa lateral vaginal sidewall and posterior vaginal mucosa in the suture. Several sutures were taken back medially and the suture was cut. Pelvis was irrigated and suctioned free of fluid. Hemostasis was good. The robot was undocked. Under laparoscopic visualization the ports were removed and the gas was allowed to escape from the abdomen. The fascia at the umbilicus was closed with a 2-0 Vicryl stitch. The skin was closed with 4-0 undyed Vicryl suture at all 4 sites. Steri-Strips were placed. Patient was brought out of anesthesia and taken to recovery room in stable condition.
[2019-04-01] MEDS: FENTANYL CITRATE INJ/PF 100 MCG/2 ML AMPUL ONE ×2 (10:41→10:46)
[2019-04-01] MEDS ORDERED: IBUPROFEN 800 MG TABLET PO SCH (12:00)
[2019-04-01] MEDS: SIMETHICONE 80 MG TAB.CHEW PO PRN ×2 (12:26→21:47)
[2019-04-01] MEDS: OXYCODONE-ACETAMINOPHEN 5-325 MG TABLET PO PRN ×3 (12:26→23:09)
[2019-04-01] MEDS ORDERED: KETOROLAC TROMETHAMINE INJ/PF 30 MG/1 ML SDV IV SCH ×2 (14:00→22:00)
[2019-04-01] MEDS ORDERED: ONDANSETRON HCL INJ/PF 4 MG/2 ML SDV ONE (14:38)
[2019-04-01] MEDS ORDERED: KETOROLAC TROMETHAMINE 60 MG/2 ML SDV ONE (14:38)
[2019-04-01] MEDS ORDERED: SUCCINYLCHOLINE CHLORIDE INJ 200 MG/10 ML VIAL ONE (14:38)
[2019-04-01] MEDS ORDERED: METOCLOPRAMIDE HCL INJ/PF 10 MG/2 ML SDV ONE (14:38)
[2019-04-01] MEDS ORDERED: DEXAMETHASONE SOD PHOSPHATE INJ 4 MG/1 ML VIAL ONE (14:38)
[2019-04-01] MEDS ORDERED: GLYCOPYRROLATE 1 MG/5 ML VIAL ONE (14:38)
[2019-04-01] MEDS ORDERED: ROCURONIUM BROMIDE INJ 50 MG/5 ML VIAL IV ONE (14:38)
[2019-04-01] MEDS ORDERED: NEOSTIGMINE METHYLSULFATE 10 MG/10 ML VIAL ONE (14:38)
[2019-04-01] MEDS ORDERED: LIDOCAINE 2% INJ-PF (20 MG/ML) 2 ML AMPUL ONE (14:38)
[2019-04-01 15:15] LABS: HEMOGLOBIN 12.1 g/dL (12.0-15.5); MEAN CORPUSCULAR HEMOGLOBIN 28.4 pg (27.0-33.4); MEAN CORPUSCULAR HGB CONC 32.7 g/dL (32.0-36.0); MEAN CORPUSCULAR VOLUME 87 fl (80-97); PLATELET COUNT 240 10^3/uL (150-450); RED BLOOD COUNT 4.26 10^6/uL (3.72-5.28); RED CELL DISTRIBUTION WIDTH 13.2 % (11.5-14.0); WHITE BLOOD COUNT 20.6 10^3/uL (4.0-10.5)
[2019-04-01 15:37] LABS: ANION GAP 9 (5-19); BLOOD UREA NITROGEN 6 mg/dL (7-20); CALCIUM 9.3 mg/dL (8.4-10.2); CARBON DIOXIDE 25 mmol/L (22-30); CHLORIDE 104 mmol/L (98-107); GLUCOSE 132 mg/dL (75-110); POTASSIUM 3.7 mmol/L (3.6-5.0)
[2019-04-01 15:51] LABS: ABSOLUTE LYMPHOCYTES# (MANUAL) 1.2 10^3/uL (0.5-4.7); ABSOLUTE MONOCYTES # (MANUAL) 0.2 10^3/uL (0.1-1.4); BASOPHILS % (MANUAL) 0 % (0-2); EOSINOPHILS % (MANUAL) 0 % (0-6); LYMPHOCYTES % (MANUAL) 6 % (13-45); MONOCYTES % (MANUAL) 1 % (3-13); SEGMENTED NEUTROPHILS % (MAN) 93 % (42-78); TOTAL CELLS COUNTED 100
[2019-04-01 15:52] LABS: PLATELET COMMENT ADEQUATE
[2019-04-01 15:54] LABS: OVALOCYTES SLIGHT; POIKILOCYTOSIS SLIGHT
[2019-04-01] MEDS: DOCUSATE SODIUM 100 MG CAPSULE PO SCH (17:46)
[2019-04-02] MEDS: OXYCODONE-ACETAMINOPHEN 5-325 MG TABLET PO PRN ×2 (04:03→09:57)
[2019-04-02] MEDS: SIMETHICONE 80 MG TAB.CHEW PO PRN (04:05)
[2019-04-02] MEDS: IBUPROFEN 800 MG TABLET PO SCH ×2 (05:11→11:47)
[2019-04-02 06:30] LABS: HEMATOCRIT 33.6 % (36.0-47.0); HEMOGLOBIN 11.3 g/dL (12.0-15.5); MEAN CORPUSCULAR HEMOGLOBIN 29.4 pg (27.0-33.4); MEAN CORPUSCULAR HGB CONC 33.6 g/dL (32.0-36.0); MEAN CORPUSCULAR VOLUME 88 fl (80-97); PLATELET COUNT 221 10^3/uL (150-450); RED BLOOD COUNT 3.83 10^6/uL (3.72-5.28); RED CELL DISTRIBUTION WIDTH 13.1 % (11.5-14.0); WHITE BLOOD COUNT 16.5 10^3/uL (4.0-10.5)
--- NOTE | 2019-04-02 09:24 | PDOC DISCHARGE SUMMARY ---
General - Admit/Disc Date/PCP Admission Date/Primary Care Provider: MICAELA LOERA PA-C Discharge Date: 04/02/19 - Discharge Diagnosis (1) Pelvic pain Is this a current diagnosis for this admission?: Yes (2) Dysmenorrhea Is this a current diagnosis for this admission?: Yes (3) Dyspareunia Is this a current diagnosis for this admission?: Yes - Additional Information Resuscitation Status: Full Code Discharge Diet: Regular Discharge Activity: Balance Activity w/Rest, Pelvic Rest Prescriptions: Oxycodone HCl/Acetaminophen [Percocet 5-325 mg Tablet] 1 tab PO Q4HP PRN #30 tablet PRN Reason: Ibuprofen [Motrin 800 mg Tablet] 800 mg PO Q6 #30 tablet Home Medications: Ibuprofen [Motrin 800 mg Tablet] 800 mg PO Q8H PRN 10 Days #30 tab 11/24/17 Dicyclomine HCl [Bentyl 20 mg Tablet] 20 mg PO TID 03/22/19 Omeprazole Magnesium [Prilosec Otc] 20 mg PO DAILY 03/22/19 Promethazine HCl [Phenergan 25 mg Tablet] 12.5 mg PO ASDIR PRN 03/22/19 Ibuprofen [Motrin 800 mg Tablet] 800 mg PO Q6 #30 tablet 04/02/19 Oxycodone HCl/Acetaminophen [Percocet 5-325 mg Tablet] 1 tab PO Q4HP PRN #30 tablet 04/02/19 History of Present Illness Patient complains of: Chronic pelvic pain History of Present Illness: UVALDO RODAS is a 33 year old female She has chronic pelvic pain with dyspareunia dysmenorrhea and requests h ysterectomy. She is completed childbearing. Hospital Course Hospital Course: She underwent a laparoscopic scopic robotic hysterectomy and bilateral salpingo- oophorectomy. She has done well overnight and is stable. We will discharge her later today to home with follow-up in a week. She has been given instructions on pelvic rest no heavy lifting. She is not to drive for at least a week. Prescription for Premarin has been given as well. Physical Exam - Physical Exam Vital Signs: Temp Pulse Resp BP Pulse Ox 98.1 F 50 L 14 110/67 100 04/02/19 07:48 04/02/19 07:48 04/02/19 07:48 04/02/19 07:48 04/02/19 07:48 Intake & Output 04/01/19 04/02/19 04/03/19 06:59 06:59 06:59 Intake Total 0 3460 Output Total 870 Balance 0 2590 Weight 70.76 kg 79 kg General appearance: PRESENT: no acute distress, well-developed, well-nourished GI/Abdominal exam: PRESENT: other - Abdominal exam shows intact incisions. Positive bowel sounds expected tenderness. Result Laboratory Results: 04/02/19 05:56 04/01/19 14:59 04/01/19 04/01/19 04/02/19 14:59 14:59 05:56 WBC 20.6 H 16.5 H RBC 4.26 3.83 Hgb 12.1 11.3 L Hct 37.0 33.6 L MCV 87 88 MCH 28.4 29.4 MCHC 32.7 33.6 RDW 13.2 13.1 Plt Count 240 221 Seg Neutrophils % Not Reportable Sodium 138.3 Potassium 3.7 Chloride 104 Carbon Dioxide 25 Anion Gap 9 BUN 6 L Creatinine 0.54 Est GFR ( Amer) > 60 Glucose 132 H Calcium 9.3 Impressions: Postop day 1 from robotic hysterectomy. Plan Discharge Plan: Home to rest. She is to follow-up in a week in the office. Acute Heart Failure - Is this a Heart Failure Patient?: No
[2019-04-02] MEDS: DOCUSATE SODIUM 100 MG CAPSULE PO SCH (09:57)
[2019-04-02 11:42] VITALS: BP 101/78
[2019-04-02] MEDS ORDERED: IBUPROFEN 800 MG TABLET PO SCH (12:00)
== END 2019-04-02 12:09 | disposition home or self-care (01) ==
LOC: OROUT 05:34 → 2N 11:30 → OROUT 04-02 12:09
PROVIDERS: ATTEND Obstetrics & Gynecology
DX: N80.3 Endometriosis of pelvic peritoneum (principal); N94.6 Dysmenorrhea, unspecified; N94.10 Unspecified dyspareunia; N83.202 Unspecified ovarian cyst, left side; N83.201 Unspecified ovarian cyst, right side; G89.29 Other chronic pain; R10.2 Pelvic and perineal pain; E03.9 Hypothyroidism, unspecified; K21.9 Gastro-esophageal reflux disease without esophagitis; F17.210 Nicotine dependence, cigarettes, uncomplicated; Z00.00 Encounter for general adult medical examination without abnormal findings; Z01.818 Encounter for other preprocedural examination; Z12.4 Encounter for screening for malignant neoplasm of cervix; Z79.899 Other long term (current) drug therapy; Z11.51 Encounter for screening for human papillomavirus (HPV)
CPT/HCPCS: 58571; S2900; 36415; 80048; 80053; 81001; 81025; 840; 85025; 85027; 86850; 86900; 86901; 88307; 94799; J0131; J0330; J0690; J1100; J1170; J1885; J2250; J2405; J2704; J2710; J2765; J3010; J3490; J7060; Q9968

== ENCOUNTER → 2019-06-18 | Outpatient (CLI) | payer OTHER | LOC: OD 12:08 | PROVIDERS: ATTEND Otolaryngology | DX: J30.9 Allergic rhinitis, unspecified (principal) | CPT/HCPCS: 36415; 82785; 86003 ==

== ENCOUNTER → 2019-08-21 | Outpatient (CLI) | payer OTHER ==
--- NOTE | 2019-08-22 09:36 | RADIOLOGY REPORT (SQ) ---
EXAM DESCRIPTION: U/S THYROID/SFT TISS HD NECK COMPLETED DATE/TIME: 08/21/2019 5:31 pm REASON FOR STUDY: E07.89 OTHER SPECIFIED DISORDERS OF THYROID E07.89 OTHER SPECIFIED DISORDERS OF T HYROID COMPARISON: None. TECHNIQUE: Dynamic and static abernathy-scale images acquired of the thyroid gland. Selected additional c olor/power Doppler images recorded. All images stored to PACS. LIMITATIONS: None. FINDINGS: RIGHT LOBE: 3.2 x 1.7 x 1.2 cm in size Homogeneous echotexture. No cystic or solid nithin s. LEFT LOBE: 4.1 x 1.7 x 1.5 cm in size Homogeneous echotexture. No cystic or solid masses. ISTHMUS: 3.4 mm in thickness. Homogeneous echotexture. No cystic or solid masses. OTHER: Patient indicates a left neck mass that is tender. In the area of concern indicated by the pa tient, a hypoechoic 3 x 2 x 0.9 cm lymph node is present with diffuse cortical thickening and loss of central hilar fat. IMPRESSION: Normal thyroid Enlarged left cervical lymph node level 2 region TECHNICAL DOCUMENTATION: JOB ID: [id number]- All Rights Reserved Reading location - IP/workstation name: [email or web address]
== END ==
LOC: RAD 17:05
PROVIDERS: ATTEND Otolaryngology
DX: E07.89 Other specified disorders of thyroid (principal); R59.0 Localized enlarged lymph nodes
CPT/HCPCS: 76536

== ENCOUNTER 2019-11-20 11:17 | Emergency (ER) | payer OTHER ==
[2019-11-20 11:24] VITALS: BP 116/67
[2019-11-20] MEDS ORDERED: ACETAMINOPHEN 325 MG TABLET PO ONE (11:33)
[2019-11-20] MEDS ORDERED: KETOROLAC TROMETHAMINE 60 MG/2 ML SDV IM ONE (11:34)
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
[2019-11-20] MEDS ORDERED: FAMOTIDINE 40 MG/5 ML SUSP 50 ML PO ONE (12:36)
[2019-11-20] MEDS ORDERED: FAMOTIDINE 20 MG TABLET PO ONE (12:55)
== END 2019-11-20 13:01 | disposition home or self-care (01) ==
LOC: ER 11:17
DX: M25.531 Pain in right wrist (principal); F17.200 Nicotine dependence, unspecified, uncomplicated; Z90.49 Acquired absence of other specified parts of digestive tract
CPT/HCPCS: 99283; 73130; 73110; 29125; J1885; J3490

== ENCOUNTER 2020-01-01 09:28 | Day surgery (SDC) | payer OTHER ==
[~2020-01-01 09:28] MED LIST changes: -CEFAZOLIN SODIUM 2 GM in DEXTROSE 5%-WATER 100 ML IV PRN; +GLYCOPYRROLATE 1 MG/5 ML VIAL ONE; +NEOSTIGMINE METHYLSULFATE 10 MG/10 ML VIAL ONE
[2020-01-01] MEDS ORDERED: BUPIVACAINE HCL 0.5%/EPI 1:200000 INJ 1.8 ML CARTRIDGE ONE ×2 (11:00→12:24)
[2020-01-01] MEDS ORDERED: DEXAMETHASONE SOD PHOSPHATE INJ 4 MG/1 ML VIAL ONE (11:02)
[2020-01-01] MEDS ORDERED: LIDOCAINE 2% INJ-PF (20 MG/ML) 10 ML AMPUL ONE (11:02)
[2020-01-01] MEDS ORDERED: FENTANYL CITRATE INJ/PF 100 MCG/2 ML AMPUL ONE (11:02)
[2020-01-01] MEDS ORDERED: MIDAZOLAM 2 MG/2 ML INJ ONE (11:02)
[2020-01-01] MEDS ORDERED: ONDANSETRON HCL INJ/PF 4 MG/2 ML SDV ONE (11:03)
[2020-01-01] MEDS ORDERED: PROPOFOL INJ 200 MG/20 ML VIAL IV ONE (11:03)
[2020-01-01] MEDS ORDERED: ONDANSETRON HCL INJ/PF 4 MG/2 ML SDV IV PRN (12:21)
[2020-01-01] MEDS ORDERED: OXYCODONE-ACETAMINOPHEN 5-325 MG TABLET PO PRN ×3 (12:21→13:46)
[2020-01-01] MEDS ORDERED: MEPERIDINE HCL/PF INJ 25 MG/1 ML DISP.SYRIN IV PRN (13:46)
[2020-01-01] MEDS ORDERED: MORPHINE SULFATE 10 MG/ML INJ IV PRN (13:46)
[2020-01-01] MEDS ORDERED: PROMETHAZINE HCL INJ 25 MG/1 ML VIAL IV PRN ×2 (13:46)
[2020-01-01] MEDS ORDERED: FENTANYL CITRATE INJ/PF 100 MCG/2 ML AMPUL IV PRN ×3 (13:46)
[2020-01-01] MEDS ORDERED: DIPHENHYDRAMINE HCL 50 MG/ML VIAL IV PRN (13:46)
[2020-01-01 14:05] VITALS: BP 116/72
--- NOTE | 2020-01-01 15:35 | Operative Report ---
Operative Report-[facility] Operative Report: DATE OF OPERATION: January 01, 2020 PREOPERATIVE DIAGNOSIS: 1. Chronic tonsillitis 2. Chronic recurrent tonsil stones POSTOPERATIVE DIAGNOSIS: 1. Chronic tonsillitis 2. Chronic recurrent tonsil stones PROCEDURE: 1. Bilateral tonsillectomy patient age greater than 12 Primary Surgeon of Record: Dr. Asad Brantley INFORMATION AND REFERRAL DIRECTOR: None Anesthesia Staff: VEENA Crump ANESTHESIA: General Endotracheal Tube Anesthesia DRAINS: None SPONGE COUNT: Verified Needle Count: N/A SPECIMEN/MATERIALS FORWARD TO THE LAB: 1. Left and Right Tonsillar Tissue ESTIMATED BLOOD LOSS: 5 mL IV FLUIDS: 400 mL COMPLICATIONS: None Findings: 1. The tonsils were 2-3+ bilateral, were highly cryptic in nature, and were with significant amounts of tonsil debris/tonsil stones bilateral. 2. The soft palatal tissues were redundant in nature and the uvula was unremarkable in appearance. INDICATIONS: This is a 34-year-old white female patient who was seen and evaluated in the [place] [facility] office. The patient had been referred for and chronic tonsillitis and recurrent tonsil stones over the years. After extensive dis cussion with the patient the recommendation and plan was to proceed with a bilateral tonsillectomy. The procedures and all of the risks and complications were all discussed in detail with the patient. She voiced an understanding of the described surgical plan, were in agreement, and consent was obtained. DESCRIPTION OF OPERATIVE PROCEDURE: The patient was taken to the main operating room and was placed on the operating room table in the supine position. Appropriate monitors were placed. Using mask and IV access general anesthesia was induced. The patient was next transorally intubated without difficulty. The table was then rotated 90 and the patient was positioned and prepped for tonsil surgery. The lips, teeth, tongue, and gums were inspected and noted to be without defect. The patient had a mouth gag inserted. It was opened and the patient was placed into suspension. There was a soft catheter passed through the nose that was used to suspend the soft palate. Marcaine with epinephrine was administered to establish bilateral peritonsillar/tonsillar blocks. Findings are as noted above. The plasma J-hook device was used to dissect and remove the tonsils from the tonsillar fossae without difficulty. This was also used to provide adequate hemostasis. Normal saline irrigation was performed and was suctioned. Adequate hemostasis was noted. The soft catheter was released and rem ashli from the patient's nose. The patient was next released from suspension and the mouth gag was closed. It was opened again and there was again no bleeding noted. It was then removed from the patient's mouth without difficulty. There was no damage to the lips, teeth, tongue, or gums noted. The patient was then returned to the anesthesia staff and was allowed to emerge from general anesthesia. The patient was extubated in the operating room and was transported to the post anesthesia recovery unit in stable condition. There were no complications.
== END 2020-01-01 13:35 | disposition home or self-care (01) ==
LOC: OROUT 09:28
PROVIDERS: ATTEND Otolaryngology
DX: J35.01 Chronic tonsillitis (principal); J35.8 Other chronic diseases of tonsils and adenoids; J34.2 Deviated nasal septum; J34.3 Hypertrophy of nasal turbinates; J30.9 Allergic rhinitis, unspecified; F17.210 Nicotine dependence, cigarettes, uncomplicated; D64.9 Anemia, unspecified; K21.9 Gastro-esophageal reflux disease without esophagitis; E07.89 Other specified disorders of thyroid
CPT/HCPCS: 87635; 88304 ×2; 42826; J2250; J3490 ×2; J1100; J3010; J2405; J2704; C9803; 170; J2710